=== PATIENT | female | born 1950 ===

== ENCOUNTER → 2024-11-26 16:01 | Outpatient (ROUT) | payer SELFPAY ==
[2024-11-26 16:49] LABS: Influenza A - CEPHEID Flu A NEGATIVE (NEGATIVE); Influenza B - CEPHEID Flu B NEGATIVE (NEGATIVE)
[2024-11-26 16:53] LABS: COVID-19 CEPHEID 4-PLEX PCR Negative (Negative)
== END ==
PROVIDERS: Visit Provider Registered Nurse
DX: R05.9 Cough, unspecified (principal)
CPT/HCPCS: 87637